=== PATIENT | male | born 1970 ===

== ENCOUNTER → 2021-11-20 | Day surgery (SDC) | payer OTHER ==
[~2021-11-20] VITALS: Ht 180.3 cm; Wt 88.5 kg
[~2021-11-20] MED LIST: AMOXICILLIN500 M2 PO; BUPRENORPHINE-1 EACH SL; IBUPROFEN800 M1 PO; LASIX40 MG PO; LOPRESSOR25 MG PO; MIRTAZAPINE30 MG PO; NEURONTIN300 MG PO; ONDANSETRON HCL8 MG PO; PANTOPRAZOLE SO40 MG PO; POTASSIUM CHLO10 ME2 PO
[2021-11-20 09:14] LABS: BASOPHIL 0.8 % (0-2); EOSINOPHIL 3.7 % (0-5); HCT 35.5 % (42.0-52.0); LYMPHOCYTE 32.4 % (15-48); MCH 30.3 pg (25.0-31.0); MCHC 33.8 g/dL (32.0-36.0); MCV 89.6 fL (78.0-100.0); MPV 10.2 fL (6.0-9.5); NEUTROPHIL 49.7 % (41-80); NRBC 0; PLT 309 K/uL (150-400); RBC 3.96 M/uL (4.70-6.00); RDW 12.5 % (11.5-14.0); WBC 8.3 K/uL (4.0-10.5)
== END | disposition home or self-care (01) ==
LOC: FAS 08:06
PROVIDERS: Oral & Maxillofacial Surgery
DX: K02.9 Dental caries, unspecified (principal); K04.7 Periapical abscess without sinus; I10 Essential (primary) hypertension; F17.200 Nicotine dependence, unspecified, uncomplicated; Z79.899 Other long term (current) drug therapy
CPT/HCPCS: D7140 ×4; D7210 ×5; D7310; 36415; 71045; 85025; 93005; J1100; J1885; J2250; J2405; J2704; J7120